=== PATIENT | male | born 1975 ===

== ENCOUNTER 2016-08-09 10:20 | Day surgery (SDC) | payer OTHER ==
[2016-08-09 11:06] VITALS: BMI 23.6
[2016-08-09] MEDS ORDERED: Propofol 10 mg/ml Inj (20 ML) ONE (13:05)
[2016-08-09] MEDS ORDERED: Midazolam 2 MG/2 ML VIAL ONE (13:05)
[2016-08-09] MEDS ORDERED: Bupivacaine HCl 0.5% PF (10 ml) Inj ONE (13:09)
[2016-08-09] MEDS ORDERED: Lidocaine 1% Inj (20ml) ONE (13:09)
[2016-08-09] MEDS ORDERED: HYDROmorphone 0.5 mg/0.5 ml ISec IVP PRN (13:12)
[2016-08-09] MEDS ORDERED: ceFAZolin IV 2 gm in Dextrose 50 ML IVPB ONE (13:13)
[2016-08-09] MEDS ORDERED: Bacitracin 500 Units/gm Oint Foilpak UD ONE (13:58)
--- NOTE | 2016-08-09 14:10 | PCM.SURG1 ---
Surgeon's Initial Post Op Note - Surgeon's Notes Surgeon: laura wills [employer] Supervisor: none Type of Anesthesia: General Endo (none), IV Sedation Anesthesia Administered By: Nasir Pre-Operative Diagnosis: sterilization. Operative Findings: bilateral vas. Post-Operative Diagnosis: sterilization. Operation Performed: bilateral vasectomy Specimen/Specimens Removed: rtand left vas Estimated Blood Loss: EBL {In ML}: 1 Blood Products Given: N/A Drains Used: No Drains Post-Op Condition: Good Date of Surgery/Procedure: 08/09/16 Time of Surgery/Procedure: 14:20
[2016-08-09] MEDS ORDERED: Lactated Ringer's 1,000 ML IV ONE (14:51)
[2016-08-09 16:31] VITALS: BP 120/74; PULSE 60; RESP 20; TEMP 98; O2SAT 100
--- NOTE | 2016-08-09 18:43 | OP ---
PROCEDURE DATE: 08/09/2016 PREOPERATIVE DIAGNOSIS: Sterilization. POSTOPERATIVE DIAGNOSIS: Sterilization. OPERATION: Bilateral vasectomy. SURGEON: Dr. Kaur FINDINGS: External genitalia, the scrotum and testicles normal. Both bilateral vas present. This patient was placed in supine position. The external genitalia were prepped and draped in the [facility] sterile fashion. The left vas was isolated and grasped with a towel clip. A 0.5 cm incision was performed in the scrotal skin. The left vas was isolated and a segment of about 2 cm removed. The end of the remaining vas was thoroughly fulgurated. Small bleeders were also fulgurated. The skin w as closed with 2 stitches of 3-0 chromic. The 2 stitches of 3-0 chromic were placed in the scrotal s kin. In the same manner, the right vas was isolated and a segment of about 2 cm was removed. Again, the skin was closed with interrupted stitches of 3-0 chromic. Dressing was applied. The patient re turned to recovery room in satisfactory condition. Deo Kaur MD cc: [id number] TT: 08/09/2016 18:42:28 en
== END 2016-08-09 16:15 | disposition home or self-care (01) ==
LOC: C.SDS 10:20
PROVIDERS: ATTEND Urology
DX: Z30.2 Encounter for sterilization (principal)
CPT/HCPCS: 55250; 88302; J0690; J2250; J2405; J2704; J3010; J7120